=== PATIENT | female | born 1965 | race Two or more races ===

== ENCOUNTER 2025-02-21 21:22 | Inpatient (IN) | payer OTHER ==
[~2025-02-21] VITALS: Ht 167.6 cm; Wt 104.8 kg
[2025-02-21] MEDS ORDERED: LOSARTAN POTASS50 MG PO (21:33)
[2025-02-21] MEDS ORDERED: DIPHENHYDRAMINE HCL 50 MG/ML VIAL 1ML IV ONE (22:15)
[2025-02-21] MEDS ORDERED: 0.9 % SODIUM CHLORIDE 1,000 ML IV ONE (22:15)
[2025-02-21] MEDS ORDERED: FAMOtidine 10 MG/ML (4ML VIAL) IV ONE (22:15)
[2025-02-21] MEDS ORDERED: KETOROLAC TROMETHAMINE 30 MG VIAL IV ONE (22:15)
[2025-02-21] MEDS ORDERED: METHYLPREDNISOLONE SOD SUCC 40 MG VIAL IV ONE (22:15)
[2025-02-21] MEDS ORDERED: ONDANSETRON HCL 2 MG/ML VIAL IV ONE (22:15)
[2025-02-21] MEDS ORDERED: KETOROLAC TROMETHAMINE 30 MG VIAL ONE (22:20)
[2025-02-21] MEDS ORDERED: ONDANSETRON HCL 2 MG/ML VIAL ONE (22:20)
[2025-02-21] MEDS ORDERED: DIPHENHYDRAMINE HCL 50 MG/ML VIAL 1ML ONE (22:20)
[2025-02-21] MEDS ORDERED: FAMOTIDINE/PF 20 MG/2 ML VIAL ONE (22:21)
[2025-02-21] MEDS ORDERED: METHYLPREDNISOLONE SOD SUCC 125 MG VIAL ONE (22:21)
[2025-02-21] MEDS ORDERED: BARIUM SULFATE 450 ML ORAL.SUSP PO ONE (22:32)
[2025-02-21 23:21] LABS: HEMATOCRIT 25.4 % (36.0-45.00); PLATELET COUNT 222 K/uL (150-450); RED BLOOD COUNT 4.17 M/uL (4.00-6.00); RED CELL DISTRIBUTION WIDTH 18.5 % (11.5-14.5)
[2025-02-21 23:25] LABS: HEMOGLOBIN 7.6 g/dL (12.0-15.00); MEAN CELL VOLUME 60.9 fL (80.00-100.00); MEAN CORPUSCULAR HEMOGLOBIN 18.2 pg (27.00-32.0)
[2025-02-21 23:36] LABS: INR 1.05; PARTIAL THROMBOPLASTIN TIME 24.8 SECONDS (22.0-34.0); PROTHROMBIN TIME 11.4 SECONDS (9.0-11.5)
[2025-02-21 23:40] LABS: ALBUMIN 3.1 gm/dL (3.4-5.0); BILIRUBIN TOTAL 0.64 mg/dL (0.3-1.2); CALCIUM 8.9 mg/dL (8.5-10.1); CREATININE SERUM 0.59 mg/dL (0.55-1.02); GFR 103.28; POTASSIUM 3.92 mEq/L (3.5-5.1); TOTAL PROTEIN 8.1 gm/dL (6.4-8.2)
[2025-02-21] MEDS ORDERED: PIPERACILLIN/TAZOBACTAM SODIUM 3.375 GM VIAL IV ONE ×2 (23:45→23:59)
[2025-02-22 01:33] LABS: URINE APPEARANCE Clear; URINE BILIRRUBIN Negative (NEGATIVE); URINE BLOOD Negative; URINE COLOR Yellow; URINE GLUCOSE Negative (NEGATIVE); URINE KETONE Negative (NEGATIVE); URINE LEUKOCYTE Negative; URINE NITRATE Negative; URINE PROTEIN Negative (NEGATIVE); URINE UROBILINOGEN 0.2 E.U./dl
[2025-02-22 01:37] LABS: URINE EPITHELIAL CELLS 3.6 uL (0.0-38.8)
[2025-02-22 01:42] LABS: URINE CAST 0.29 uL (0.0-1.40); URINE RBC 1.7 uL (0.0-20.8); URINE WBC 0.4 uL (0.0-23.2)
[2025-02-22] MEDS ORDERED: SODIUM CHLORIDE 0.45 % 1,000 ML IV SCH (10:30)
[2025-02-22] MEDS ORDERED: LACTULOSE 20 G/30 ML BLIST.PACK PO SCH (10:55)
[2025-02-22] MEDS ORDERED: IRBESARTAN 150 MG TABLET PO SCH (11:03)
[2025-02-22] MEDS ORDERED: ONDANSETRON HCL 4 MG in DEXTROSE 5 % IN WATER 50 ML IV PRN (11:15)
[2025-02-22] MEDS ORDERED: INSULIN LISPRO 1,000 UNIT/10 ML UNITS SUBCUTANEO PRN (11:15)
[2025-02-22] MEDS ORDERED: CEFTRIAXONE SODIUM 1,000 MG VIAL IV SCH (11:15)
[2025-02-22] MEDS ORDERED: HYOSCYAMINE SULFATE 0.125 MG TAB.SUBL SL PRN (11:15)
[2025-02-22] MEDS ORDERED: MORPHINE SULFATE 4 MG/ML VIAL IV PRN (11:15)
[2025-02-22] MEDS ORDERED: METRONIDAZOLE/SODIUM CHLORIDE 100 ML IV SCH (11:15)
[2025-02-22] MEDS ORDERED: DEXTROSE 50 % IN WATER 0.5 G/ML DISP.SYRIN IV PRN (11:15)
[2025-02-22] MEDS ORDERED: SOD FERRIC GLUC COMPLX/SUCROSE 125 MG in 0.9 % SODIUM CHLORIDE 100 ML IV SCH (12:00)
[2025-02-22] MEDS ORDERED: HYOSCYAMINE SULFATE 0.125 MG TAB.SUBL ONE (12:52)
[2025-02-22] MEDS ORDERED: CEFTRIAXONE SODIUM 1,000 MG VIAL ONE (12:53)
[2025-02-22] MEDS ORDERED: METRONIDAZOLE/SODIUM CHLORIDE 500 MG/100 ML PIGGYBACK IV ONE (12:53)
[2025-02-22] MEDS ORDERED: ONDANSETRON HCL 2 MG/ML VIAL ONE (12:54)
[2025-02-22] MEDS ORDERED: ACETAMINOPHEN 500 MG GEL..CAP PO SCH (14:00)
[2025-02-22 15:05] VITALS: BP 146/66; O2SAT 95
[2025-02-22] MEDS ORDERED: DEXTROSE 50 % IN WATER 0.5 G/ML VIAL IV PRN (16:30)
[2025-02-22 17:19] LABS: HEMATOCRIT 29.4 % (36.0-45.00); MEAN CORPUSCULAR HEMOGLOBIN 20.1 pg (27.00-32.0); MEAN CORPUSCULAR HGB CONC 30.7 g/dl (32.0-36.0); RED BLOOD COUNT 4.48 M/uL (4.00-6.00)
[2025-02-22 17:20] LABS: MEAN CELL VOLUME 65.6 fL (80.00-100.00); PLATELET COUNT 195 K/uL (150-450); RED CELL DISTRIBUTION WIDTH 22.3 % (11.5-14.5)
[2025-02-22 17:44] LABS: FERRITIN 89.1 NG/ML (8-252)
[2025-02-22 17:54] VITALS: BP 145/84; O2SAT 95
[2025-02-22] MEDS ORDERED: MAGNESIUM HYDROXIDE 400 MG/5 ML ML PO SCH (21:00)
[2025-02-22] MEDS ORDERED: FAMOtidine 40 MG TABLET PO SCH (21:00)
[2025-02-22] MEDS ORDERED: ALPRAzolam 0.5 MG TABLET PO SCH (21:00)
[2025-02-22] MEDS ORDERED: MINERAL OIL 30 ML BLIST.PACK PO SCH (21:00)
[2025-02-22 22:19] VITALS: BP 120/68
[2025-02-23 00:46] VITALS: BP 109/66
[2025-02-23 07:57] LABS: INR 1.06; PARTIAL THROMBOPLASTIN TIME 22.9 SECONDS (22.0-34.0); PROTHROMBIN TIME 11.5 SECONDS (9.0-11.5)
[2025-02-23 08:14] LABS: ALBUMIN 2.7 gm/dL (3.4-5.0); BILIRUBIN TOTAL 0.53 mg/dL (0.3-1.2); BILIRUBIN,CONJUGATED 0.21 mg/dL (0.0-0.2); BILIRUBIN,UNCONJUGATED 0.32 mg/dL (0.0-0.6); CALCIUM 8.6 mg/dL (8.5-10.1); CHOL HDL RATIO 4.7 (0-5.0); CREATININE SERUM 0.49 mg/dL (0.55-1.02); GFR 127.97; PHOSPHOROUS 3.9 mg/dL (2.5-4.9); POTASSIUM 4.22 mEq/L (3.5-5.1); T4 FREE 1.35 NG/ML (0.76-1.46); TOTAL PROTEIN 6.9 gm/dL (6.4-8.2); TSH 1.02 uIU/mL (0.358-3.74)
[2025-02-23 08:15] LABS: C-REACTIVE PROTEIN 12.1 MG/DL (0.00-0.29)
[2025-02-23 08:38] VITALS: BP 139/57
[2025-02-23 09:34] LABS: HEMATOCRIT 28.9 % (36.0-45.00); MEAN CORPUSCULAR HGB CONC 30.7 g/dl (32.0-36.0); RED BLOOD COUNT 4.39 M/uL (4.00-6.00); RED CELL DISTRIBUTION WIDTH 22.2 % (11.5-14.5)
[2025-02-23 10:24] LABS: HEMOGLOBIN 8.9 g/dL (12.0-15.00); MEAN CORPUSCULAR HEMOGLOBIN 20.2 pg (27.00-32.0)
[2025-02-23 10:25] LABS: PLATELET COUNT 202 K/uL (150-450)
[2025-02-23 19:14] VITALS: BP 129/78; O2SAT 99
[2025-02-24 01:10] VITALS: BP 145/69; O2SAT 97
[2025-02-24 08:44] VITALS: BP 140/63
[2025-02-24 12:25] LABS: HEMATOCRIT 35.5 % (36.0-45.00); MEAN CORPUSCULAR HEMOGLOBIN 20.8 pg (27.00-32.0); RED BLOOD COUNT 5.29 M/uL (4.00-6.00); RED CELL DISTRIBUTION WIDTH 24.1 % (11.5-14.5)
[2025-02-24 12:36] LABS: MEAN CELL VOLUME 67.2 fL (80.00-100.00); PLATELET COUNT 204 K/uL (150-450)
[2025-02-24] MEDS ORDERED: PEG3350/SOD SULF,BICARB,CL/KCL 4,000 ML GALLON PO NR (15:00)
[2025-02-24 16:53] VITALS: BP 150/72
[2025-02-25 01:15] VITALS: BP 144/63; O2SAT 97
[2025-02-25] MEDS ORDERED: MIDAZOLAM HCL 2 MG/2 ML VIAL IV ONE (09:45)
[2025-02-25] MEDS ORDERED: DIPHENHYDRAMINE HCL 50 MG/ML VIAL 1ML IV ONE (09:45)
[2025-02-25] MEDS ORDERED: fentaNYL CITRATE 50 MCG/ML AMPUL IV ONE (09:45)
[2025-02-25 12:10] LABS: FOLIC ACID 10.17 ng/ml (4.78-20)
[2025-02-25 17:10] VITALS: BP 146/80
[2025-02-27 02:39] VITALS: BP 137/75; O2SAT 95
[2025-02-27 08:31] LABS: HEMATOCRIT 31.9 % (36.0-45.00); HEMOGLOBIN 10.2 g/dL (12.0-15.00); MEAN CORPUSCULAR HEMOGLOBIN 21.3 pg (27.00-32.0); PLATELET COUNT 170 K/uL (150-450); RED BLOOD COUNT 4.79 M/uL (4.00-6.00)
[2025-02-27 08:32] LABS: MEAN CELL VOLUME 66.6 fL (80.00-100.00)
[2025-02-27 09:18] VITALS: BP 150/80
[2025-02-27 09:23] LABS: ALBUMIN 2.5 gm/dL (3.4-5.0); BILIRUBIN TOTAL 0.45 mg/dL (0.3-1.2); CALCIUM 8.3 mg/dL (8.5-10.1); CREATININE SERUM 0.45 mg/dL (0.55-1.02); GFR 141.18; GLOBULINA 3.9 G/DL (2.4-3.5); MAGNESIUM 1.8 mg/dL (1.8-2.4); PHOSPHOROUS 3.6 mg/dL (2.5-4.9); POTASSIUM 3.76 mEq/L (3.5-5.1); TOTAL PROTEIN 6.4 gm/dL (6.4-8.2)
[2025-02-27 18:29] VITALS: BP 160/71; O2SAT 97
[2025-02-28 02:56] VITALS: BP 156/80; O2SAT 95
[2025-02-28 10:02] VITALS: BP 147/56; O2SAT 98
[2025-02-28 18:57] VITALS: BP 160/70; O2SAT 96
[2025-03-01 01:07] VITALS: BP 156/71; O2SAT 96
[2025-03-01 10:12] VITALS: BP 156/75; O2SAT 97
[2025-03-01] MEDS ORDERED: BUPIVACAINE HCL/MPF 0.5% 30ML VIAL ONE (16:55)
[2025-03-01] MEDS ORDERED: LIDOCAINE HCL 1% 20 ML VIAL IJ ONE (17:02)
[2025-03-01] MEDS ORDERED: CHLORHEXIDINE GLUCONATE 120 ML BOTTLE TOP ONE (17:06)
[2025-03-01] MEDS ORDERED: HEPARIN SODIUM,PORCINE/PF 100 UNIT/ML SYRINGE IV ONE (17:25)
[2025-03-01 22:49] VITALS: BP 166/84
[2025-03-02 01:17] VITALS: BP 159/75
[2025-03-02 09:59] VITALS: BP 158/68; O2SAT 98
[2025-03-02 18:25] VITALS: BP 160/85; O2SAT 98
[2025-03-03 01:58] VITALS: BP 129/73
[2025-03-03 09:30] VITALS: BP 147/74; O2SAT 98
== END 2025-03-03 15:35 | disposition home or self-care (01) | DRG 357 ==
LOC: ER 21:24 → MEDJ 02-22 11:50
PROVIDERS: General Practice; Surgery; ADMIT Internal Medicine; ATTEND Internal Medicine
PROC: BW21YZZ Computerized Tomography (CT Scan) of Abdomen and Pelvis using Other Contrast (ICD-10-PCS; 2025-02-21)
PROC: 30233N1 Transfusion of Nonautologous Red Blood Cells into Peripheral Vein, Percutaneous Approach (ICD-10-PCS; 2025-02-22)
PROC: BB24ZZZ Computerized Tomography (CT Scan) of Bilateral Lungs (ICD-10-PCS; 2025-02-22)
PROC: B246ZZZ Ultrasonography of Right and Left Heart (ICD-10-PCS; 2025-02-22)
PROC: 0DBK8ZX Excision of Ascending Colon, Via Natural or Artificial Opening Endoscopic, Diagnostic (ICD-10-PCS; 2025-02-25)
PROC: 05H633Z Insertion of Infusion Device into Left Subclavian Vein, Percutaneous Approach (ICD-10-PCS; 2025-03-01)
PROC: 0JH60WZ Insertion of Totally Implantable Vascular Access Device into Chest Subcutaneous Tissue and Fascia, Open Approach (ICD-10-PCS; principal; 2025-03-01 16:30)
DX: C18.2 Malignant neoplasm of ascending colon (principal); C78.7 Secondary malignant neoplasm of liver and intrahepatic bile duct; K57.30 Diverticulosis of large intestine without perforation or abscess without bleeding; D63.0 Anemia in neoplastic disease; D50.9 Iron deficiency anemia, unspecified; D64.89 Other specified anemias; K80.20 Calculus of gallbladder without cholecystitis without obstruction; E11.9 Type 2 diabetes mellitus without complications; I10 Essential (primary) hypertension

== ENCOUNTER 2025-05-01 19:48 | Inpatient (IN) | payer OTHER ==
[~2025-05-01] VITALS: Ht 167.6 cm; Wt 97.1 kg
[~2025-05-01 19:48] MED LIST: LOSARTAN POTASS50 MG PO
--- NOTE | 2025-05-01 20:07 | NUR ---
PTE ALERTA Y ORIENTADA X3 PTE DE CANCER DE COLOR Y HIGADO VERBALIZA TENER DIARREAS Y VOMITOS SE LE AISHA S/V Y SE UBICA.
[2025-05-01] MEDS ORDERED: FAMOtidine 10 MG/ML (4ML VIAL) IV ONE (20:30)
[2025-05-01] MEDS ORDERED: 0.9 % SODIUM CHLORIDE 1,000 ML IV ONE (20:30)
[2025-05-01] MEDS ORDERED: FAMOTIDINE/PF 20 MG/2 ML VIAL ONE (20:48)
--- NOTE | 2025-05-01 21:37 | NUR ---
SE EDUCA A PACIENTE SOBRE TRATAMIENTO MEDICO EL CUAL REFIERE ENTENDER, SE REALIZA GUIDO DE MUESTRAS REENA ORDEN MEDICA Y SE ADMINISTRA MEDICAS REENA ORDEN MEDICA.
[2025-05-01 21:46] LABS: BASO % 0.3 % (0.1-1.2); EOS # 0.01 (0.04-0.54); EOS % 0.3 % (0.7-7.0); LYMPH # 0.43 (1.18-3.74); LYMPH % 11.3 % (19.3-53.1); MEAN PLATELET VOLUME 9.90 fl (9.4-12.4); MONO # 0.24 (0.24-0.82); MONO % 6.3 % (4.7-12.5); NEUT # 3.08 (1.56-6.13); NEUT % 81.0 % (34.0-71.1); RED CELL DISTRIBUTION WIDTH 24.0 % (11.6-14.4)
[2025-05-01 22:05] LABS: ALT/SGPT 56.0 U/L (12-78); AST/SGOT 46.0 U/L (15-37); BILIRUBIN TOTAL 0.57 mg/dL (0.3-1.2); BUN CREA RATIO 20.0 (7.0-25.0); CREATININE SERUM 0.56 mg/dL (0.55-1.02); GFR 109.69; GLOBULINA 4.1 G/DL (2.4-3.5); GLUCOSE FASTING 152.0 mg/dL (65-100); OSMOLALITY SERUM 278.0 MOSM/KG (275-295)
[2025-05-01 22:22] LABS: URINE APPEARANCE Turbid; URINE BILIRRUBIN Negative (NEGATIVE); URINE BLOOD Negative; URINE COLOR Yellow; URINE GLUCOSE Negative (NEGATIVE); URINE KETONE Negative (NEGATIVE); URINE LEUKOCYTE Large; URINE NITRATE Negative; URINE PROTEIN 30 (NEGATIVE); URINE UROBILINOGEN 1.0 E.U./dl
[2025-05-01 22:25] LABS: URINE CAST 6.48 uL (0.0-1.40); URINE EPITHELIAL CELLS 45.5 uL (0.0-38.8); URINE RBC 237.1 uL (0.0-20.8); URINE WBC 84.8 uL (0.0-23.2)
[2025-05-01 22:30] LABS: COVID-19 AG NEGATIVE (NEGATIVE)
[2025-05-01] MEDS ORDERED: BARIUM SULFATE 450 ML ORAL.SUSP PO ONE ×2 (22:35→23:08)
[2025-05-01 22:36] LABS: URINE BACTERIA > 9821.5 uL (0.0-1933)
[2025-05-01] MEDS ORDERED: ACETAMINOPHEN 500 MG GEL..CAP PO PRN (23:30)
[2025-05-01] MEDS ORDERED: PANTOPRAZOLE SODIUM 40 MG/VIAL VIAL IV SCH (23:30)
[2025-05-01] MEDS ORDERED: ONDANSETRON HCL 4 MG in 0.9 % SODIUM CHLORIDE 50 ML IV PRN (23:30)
[2025-05-01] MEDS ORDERED: 0.9 % SODIUM CHLORIDE 1,000 ML IV SCH (23:30)
[2025-05-01] MEDS ORDERED: DEXTROSE 50 % IN WATER 0.5 G/ML DISP.SYRIN IV PRN (23:45)
[2025-05-01] MEDS ORDERED: INSULIN LISPRO 1,000 UNIT/10 ML UNITS SUBCUTANEO PRN (23:45)
[2025-05-02] MEDS ORDERED: ENALAPRILAT DIHYDRATE 1.25 MG/ML VIAL IV SCH
[2025-05-02] MEDS ORDERED: PIPERACILLIN/TAZOBACTAM SODIUM 3.375 GM in DEXTROSE 5 % IN WATER 100 ML IV SCH
[2025-05-02] MEDS ORDERED: PIPERACILLIN/TAZOBACTAM SODIUM 3.375 GM VIAL IV ONE (02:53)
[2025-05-02 04:30] VITALS: BP 136/78; O2SAT 99
[2025-05-02 08:00] VITALS: BP 133/75; O2SAT 99
[2025-05-02] MEDS ORDERED: ENOXAPARIN SODIUM 40 MG/0.4 ML SYRINGE SUBCUTANEO SCH (09:00)
[2025-05-02 13:14] LABS: INR 1.07
[2025-05-02 16:08] VITALS: BP 137/69; O2SAT 97
[2025-05-03 00:55] VITALS: BP 129/69; O2SAT 99
[2025-05-03 08:00] VITALS: BP 126/79; O2SAT 98
[2025-05-03 16:00] VITALS: BP 163/75; O2SAT 978
[2025-05-03] MEDS ORDERED: PIPERACILLIN/TAZOBACTAM SODIUM 3.375 GM VIAL IV ONE (22:40)
[2025-05-04 00:31] VITALS: BP 137/78; O2SAT 98
[2025-05-04] MEDS ORDERED: LACTOBACILLUS ACIDOPHILUS 1 CAP CAP PO SCH (09:00)
[2025-05-04 09:28] VITALS: BP 115/75; O2SAT 99
[2025-05-04 16:05] VITALS: BP 152/93; O2SAT 100
[2025-05-05 00:46] VITALS: BP 134/77; O2SAT 100
[2025-05-05 08:09] VITALS: BP 136/78; O2SAT 99
[2025-05-05 08:11] LABS: BASO % 0.6 % (0.1-1.2); EOS # 0.07 (0.04-0.54); EOS % 1.9 % (0.7-7.0); LYMPH # 1.26 (1.18-3.74); LYMPH % 34.9 % (19.3-53.1); MEAN PLATELET VOLUME 10.00 fl (9.4-12.4); MONO # 0.45 (0.24-0.82); NEUT # 1.80 (1.56-6.13); NEUT % 49.8 % (34.0-71.1); RED CELL DISTRIBUTION WIDTH 23.1 % (11.6-14.4)
[2025-05-05 08:14] LABS: MONO % 12.5 % (4.7-12.5)
[2025-05-05 08:35] LABS: BUN CREA RATIO 13.0 (7.0-25.0); CREATININE SERUM 0.54 mg/dL (0.55-1.02); GFR 114.39; GLUCOSE FASTING 120.0 mg/dL (65-100); OSMOLALITY SERUM 292.0 MOSM/KG (275-295)
[2025-05-05] MEDS ORDERED: SODIUM CHLORIDE 0.45 % 1,000 ML IV SCH (13:30)
[2025-05-05] MEDS ORDERED: POTASSIUM CHLORIDE/D5-0.45NACL 1,000 ML IV NR (14:15)
[2025-05-05 16:48] VITALS: BP 139/81; O2SAT 97
[2025-05-06 00:38] VITALS: BP 129/78; O2SAT 100
[2025-05-06 07:37] LABS: BASO % 0.5 % (0.1-1.2); EOS # 0.09 (0.04-0.54); EOS % 2.1 % (0.7-7.0); LYMPH # 1.97 (1.18-3.74); LYMPH % 46.6 % (19.3-53.1); MEAN PLATELET VOLUME 9.70 fl (9.4-12.4); MONO # 0.36 (0.24-0.82); MONO % 8.5 % (4.7-12.5); NEUT # 1.78 (1.56-6.13); NEUT % 42.1 % (34.0-71.1); RED CELL DISTRIBUTION WIDTH 22.7 % (11.6-14.4)
[2025-05-06 08:05] LABS: BAND MAN 1.0 %; EOSINOPHIL MAN 2.0 %; LYMPHOCYTE MAN 43.0 %; MONOCYTE MAN 4.0 %; NEUTROPHILS MAN 49.0 %
[2025-05-06 08:15] VITALS: BP 147/71; O2SAT 99
[2025-05-06 08:15] LABS: ALT/SGPT 49.0 U/L (12-78); AST/SGOT 63.0 U/L (15-37); BILIRUBIN TOTAL 0.51 mg/dL (0.3-1.2); BUN CREA RATIO 8.0 (7.0-25.0); CREATININE SERUM 0.63 mg/dL (0.55-1.02); GFR 95.75; GLOBULINA 3.5 G/DL (2.4-3.5); GLUCOSE FASTING 110.0 mg/dL (65-100); OSMOLALITY SERUM 288.0 MOSM/KG (275-295)
[2025-05-06] MEDS ORDERED: POTASSIUM CHLORIDE IN WATER 100 ML IV NR (09:00)
[2025-05-06 16:00] VITALS: BP 172/77; O2SAT 97
[2025-05-06 20:00] VITALS: BP 164/80; O2SAT 98
[2025-05-07 01:26] VITALS: BP 134/83; O2SAT 100
[2025-05-07 07:23] LABS: BASO % 0.4 % (0.1-1.2); EOS # 0.06 (0.04-0.54); EOS % 1.3 % (0.7-7.0); LYMPH # 2.47 (1.18-3.74); LYMPH % 54.2 % (19.3-53.1); MEAN PLATELET VOLUME 9.70 fl (9.4-12.4); MONO # 0.33 (0.24-0.82); MONO % 7.2 % (4.7-12.5); NEUT # 1.67 (1.56-6.13); NEUT % 36.7 % (34.0-71.1); RED CELL DISTRIBUTION WIDTH 22.9 % (11.6-14.4)
[2025-05-07 07:56] LABS: BUN CREA RATIO 9.0 (7.0-25.0); CREATININE SERUM 0.46 mg/dL (0.55-1.02); GFR 137.64; GLUCOSE FASTING 112.0 mg/dL (65-100); OSMOLALITY SERUM 290.0 MOSM/KG (275-295)
[2025-05-07 08:00] VITALS: BP 140/83; O2SAT 99
[2025-05-07] MEDS ORDERED: POTASSIUM CHLORIDE 10 MEQ CAPSULE PO STA (10:02)
[2025-05-07] MEDS ORDERED: POTASSIUM CHLORIDE 10 MEQ CAPSULE PO SCH (13:00)
[2025-05-07 16:00] VITALS: BP 148/77; O2SAT 98
== END 2025-05-07 16:22 | disposition home or self-care (01) | DRG 690 ==
LOC: ER 19:52 → SURH 23:31
PROVIDERS: General Practice; Student in an Organized Health Care Education/Training Program; ADMIT Internal Medicine; ATTEND Internal Medicine
PROC: BW21ZZZ Computerized Tomography (CT Scan) of Abdomen and Pelvis (ICD-10-PCS; principal; 2025-05-01)
DX: N39.0 Urinary tract infection, site not specified (principal); C78.7 Secondary malignant neoplasm of liver and intrahepatic bile duct; C18.2 Malignant neoplasm of ascending colon; B96.89 Other specified bacterial agents as the cause of diseases classified elsewhere; I10 Essential (primary) hypertension; E11.9 Type 2 diabetes mellitus without complications; Z79.4 Long term (current) use of insulin; D69.6 Thrombocytopenia, unspecified; E87.6 Hypokalemia

== ENCOUNTER 2025-05-13 08:46 | Inpatient (IN) | payer OTHER ==
[~2025-05-13] VITALS: Ht 167.6 cm; Wt 97.5 kg
--- NOTE | 2025-05-13 09:58 | NUR ---
PTE ALERTA Y ORIENTADA X3 REFIERE QUE PRESENTA DOLOR ABDOMINAL DESDE EL GYPSY DE SONY CON DIARREAS PERSISTENTES, QUE ES PTE DE CANCER. SE MIDEN S/V Y SE UBICA EN CAMA 8.
[2025-05-13] MEDS ORDERED: DIPHENHYDRAMINE HCL 50 MG/ML VIAL 1ML IV ONE (10:15)
[2025-05-13] MEDS ORDERED: FAMOtidine 10 MG/ML (4ML VIAL) IV ONE (10:15)
[2025-05-13] MEDS ORDERED: 0.9 % SODIUM CHLORIDE 1,000 ML IV ONE (10:15)
[2025-05-13] MEDS ORDERED: KETOROLAC TROMETHAMINE 30 MG VIAL IV ONE (10:15)
[2025-05-13] MEDS ORDERED: METHYLPREDNISOLONE SOD SUCC 125 MG VIAL IV ONE (10:15)
[2025-05-13] MEDS ORDERED: CIPROFLOXACIN IN 5 % DEXTROSE 400 MG/200 ML PIGGYBAG IV ONE (10:15)
--- NOTE | 2025-05-13 11:06 | NUR ---
SE EDUCA A PACIENTE SOBRE TRATAMIENTO MEDICO EL CUAL REFIERE ENTENDER, SE REALIZA CANALIZACION DE PACIENTE CON ANGIO #24 Y SE ADMINISTRA MEDICAMENTOS REENA ORDEN MEDICA Y BAJO MEDIDAS ASEPTICAS.
[2025-05-13] MEDS ORDERED: CHOLESTYRAMINE/ASPARTAME LIGHT 4 G/PKT PACKET PO NR (11:15)
[2025-05-13 12:02] LABS: BASO % 0.5 % (0.1-1.2); EOS # 0.01 (0.04-0.54); EOS % 0.1 % (0.7-7.0); LYMPH # 1.73 (1.18-3.74); LYMPH % 14.8 % (19.3-53.1); MONO # 1.51 (0.24-0.82); NEUT # 8.35 (1.56-6.13); NEUT % 71.4 % (34.0-71.1); RED CELL DISTRIBUTION WIDTH 22.5 % (11.6-14.4)
[2025-05-13 12:04] LABS: MONO % 12.9 % (4.7-12.5)
[2025-05-13 12:35] LABS: ALT/SGPT 53.0 U/L (12-78); AST/SGOT 58.0 U/L (15-37); BILIRUBIN TOTAL 1.35 mg/dL (0.3-1.2); BILIRUBIN,CONJUGATED 0.43 mg/dL (0.0-0.2); BUN CREA RATIO 18.0 (7.0-25.0); CREATININE SERUM 0.68 mg/dL (0.55-1.02); GFR 87.67; GLOBULINA 4.8 G/DL (2.4-3.5); GLUCOSE FASTING 144.0 mg/dL (65-100); OSMOLALITY SERUM 280.0 MOSM/KG (275-295)
[2025-05-13 12:59] LABS: INR 1.1
[2025-05-13] MEDS ORDERED: 0.9 % SODIUM CHLORIDE 1,000 ML IV SCH (19:30)
[2025-05-13] MEDS ORDERED: PANTOPRAZOLE SODIUM 40 MG/VIAL VIAL IV SCH (19:34)
[2025-05-13] MEDS ORDERED: ACETAMINOPHEN 500 MG GEL..CAP PO PRN (19:45)
[2025-05-13] MEDS ORDERED: ONDANSETRON HCL 4 MG in 0.9 % SODIUM CHLORIDE 50 ML IV PRN (19:45)
[2025-05-13] MEDS ORDERED: ENALAPRILAT DIHYDRATE 1.25 MG/ML VIAL IV PRN (19:45)
[2025-05-13] MEDS ORDERED: CIPROFLOXACIN IN 5 % DEXTROSE 200 ML IV SCH (21:00)
[2025-05-13 23:00] VITALS: BP 134/76; O2SAT 98
[2025-05-14 03:47] VITALS: BP 134/76
[2025-05-14 07:47] VITALS: BP 136/84; O2SAT 98
[2025-05-14 10:11] LABS: URINE APPEARANCE Clear; URINE BILIRRUBIN Negative (NEGATIVE); URINE BLOOD Negative; URINE COLOR Yellow; URINE GLUCOSE Negative (NEGATIVE); URINE KETONE Negative (NEGATIVE); URINE LEUKOCYTE Trace; URINE NITRATE Negative; URINE PROTEIN Negative (NEGATIVE); URINE UROBILINOGEN 1.0 E.U./dl
[2025-05-14 10:15] LABS: URINE BACTERIA 203.9 uL (0.0-1933); URINE EPITHELIAL CELLS 32.9 uL (0.0-38.8); URINE WBC 17.0 uL (0.0-23.2)
[2025-05-14 10:27] LABS: URINE CAST 0.58 uL (0.0-1.40); URINE RBC 1.4 uL (0.0-20.8)
[2025-05-14 15:27] VITALS: BP 146/80; O2SAT 96
[2025-05-14 20:02] LABS: URINE APPEARANCE Cloudy; URINE BILIRRUBIN Negative (NEGATIVE); URINE BLOOD Negative; URINE COLOR Yellow; URINE GLUCOSE Negative (NEGATIVE); URINE KETONE Trace (NEGATIVE); URINE LEUKOCYTE Moderate; URINE NITRATE Negative; URINE PROTEIN Negative (NEGATIVE); URINE UROBILINOGEN 1.0 E.U./dl
[2025-05-14 20:05] LABS: URINE BACTERIA 589.1 uL (0.0-1933); URINE EPITHELIAL CELLS 114.6 uL (0.0-38.8); URINE RBC 3.6 uL (0.0-20.8); URINE WBC 144.7 uL (0.0-23.2)
[2025-05-14 20:06] LABS: URINE CAST 0.73 uL (0.0-1.40)
[2025-05-14 20:24] LABS: TYPE CELLS SQUAMOUS
[2025-05-14 20:25] LABS: URINE MUCUS SCANT; URINE YEAST FEW /hpf
[2025-05-15 02:20] VITALS: BP 146/62; O2SAT 97
[2025-05-15 08:00] VITALS: BP 125/64; O2SAT 98
[2025-05-15 17:34] VITALS: BP 145/84; O2SAT 99
[2025-05-16 01:55] VITALS: BP 111/56; O2SAT 100
[2025-05-16 07:32] LABS: BASO % 1.1 % (0.1-1.2); EOS # 0.11 (0.04-0.54); EOS % 3.0 % (0.7-7.0); LYMPH # 1.01 (1.18-3.74); LYMPH % 27.4 % (19.3-53.1); MONO # 0.42 (0.24-0.82); MONO % 11.4 % (4.7-12.5); NEUT # 2.09 (1.56-6.13); NEUT % 56.6 % (34.0-71.1); RED CELL DISTRIBUTION WIDTH 20.2 % (11.6-14.4)
[2025-05-16 08:00] VITALS: BP 129/76; O2SAT 98
[2025-05-16 08:08] LABS: ALT/SGPT 26.0 U/L (12-78); AST/SGOT 30.0 U/L (15-37); BILIRUBIN TOTAL 0.75 mg/dL (0.3-1.2); BUN CREA RATIO 13.0 (7.0-25.0); CREATININE SERUM 0.53 mg/dL (0.55-1.02); GFR 116.89; GLOBULINA 3.5 G/DL (2.4-3.5); GLUCOSE FASTING 118.0 mg/dL (65-100); OSMOLALITY SERUM 286.0 MOSM/KG (275-295)
[2025-05-16 18:20] VITALS: BP 137/80; O2SAT 98
[2025-05-17 02:19] VITALS: BP 153/80; O2SAT 97
[2025-05-17 07:00] VITALS: BP 168/76; O2SAT 99
[2025-05-17 07:05] LABS: URINE APPEARANCE Clear; URINE BILIRRUBIN Negative (NEGATIVE); URINE BLOOD Negative; URINE COLOR Yellow; URINE GLUCOSE Negative (NEGATIVE); URINE KETONE Negative (NEGATIVE); URINE LEUKOCYTE Small; URINE NITRATE Negative; URINE PROTEIN Negative (NEGATIVE); URINE UROBILINOGEN 0.2 E.U./dl
[2025-05-17 07:09] LABS: URINE BACTERIA 259.1 uL (0.0-1933); URINE EPITHELIAL CELLS 53.3 uL (0.0-38.8); URINE WBC 46.1 uL (0.0-23.2)
[2025-05-17 07:23] LABS: URINE CAST 0.00 uL (0.0-1.40); URINE RBC 1.9 uL (0.0-20.8)
== END 2025-05-17 15:03 | disposition home or self-care (01) | DRG 392 ==
LOC: ER 08:49 → MEDJ 20:07 → SURG 20:07 → SEC-K 05-14 03:43 → SURG 05-14 03:51 → SURH 05-14 16:03
PROVIDERS: General Practice; Internal Medicine Infectious Disease; ADMIT Internal Medicine; ATTEND Internal Medicine
PROC: BW21ZZZ Computerized Tomography (CT Scan) of Abdomen and Pelvis (ICD-10-PCS; principal; 2025-05-13)
PROC: 8E0ZXY6 Isolation (ICD-10-PCS; 2025-05-13)
DX: K52.89 Other specified noninfective gastroenteritis and colitis (principal); C78.7 Secondary malignant neoplasm of liver and intrahepatic bile duct; C18.2 Malignant neoplasm of ascending colon; T45.1X5A Adverse effect of antineoplastic and immunosuppressive drugs, initial encounter; D69.6 Thrombocytopenia, unspecified; I10 Essential (primary) hypertension; E11.9 Type 2 diabetes mellitus without complications; Z79.4 Long term (current) use of insulin; E78.5 Hyperlipidemia, unspecified

== ENCOUNTER 2025-07-17 09:39 | Inpatient (IN) | payer OTHER ==
[~2025-07-17] VITALS: Ht 170.2 cm; Wt 94.3 kg
[2025-07-17] MEDS ORDERED: DIATRIZOATE MEGLUMINE, SODIUM 30 ML BOTTLE PO ONE (10:30)
[2025-07-17] MEDS ORDERED: 0.9 % SODIUM CHLORIDE 1,000 ML IV ONE (10:30)
[2025-07-17] MEDS ORDERED: FAMOtidine 10 MG/ML (4ML VIAL) IV ONE (10:30)
[2025-07-17] MEDS ORDERED: MORPHINE SULFATE 4 MG/ML VIAL IV ONE (10:30)
[2025-07-17] MEDS ORDERED: ONDANSETRON HCL 2 MG/ML VIAL IV ONE (10:30)
[2025-07-17] MEDS ORDERED: ONDANSETRON HCL 2 MG/ML VIAL ONE (10:40)
[2025-07-17] MEDS ORDERED: FAMOTIDINE/PF 20 MG/2 ML VIAL ONE (10:41)
[2025-07-17] MEDS ORDERED: DIATRIZOATE MEGLUMINE, SODIUM 30 ML BOTTLE ONE (10:41)
[2025-07-17 11:32] LABS: BASO % 0.4 % (0.1-1.2); EOS # 0.04 (0.04-0.54); EOS % 1.6 % (0.7-7.0); LYMPH # 1.01 (1.18-3.74); LYMPH % 40.7 % (19.3-53.1); MEAN PLATELET VOLUME 10.60 fl (9.4-12.4); MONO # 0.28 (0.24-0.82); MONO % 11.3 % (4.7-12.5); NEUT # 1.13 (1.56-6.13); NEUT % 45.6 % (34.0-71.1); RED CELL DISTRIBUTION WIDTH 15.0 % (11.6-14.4)
[2025-07-17 11:49] LABS: ERYTHROCYTE SEDIMENTATION RATE 77 mm/hr (0-30)
[2025-07-17 11:56] LABS: INR 1.02
[2025-07-17 11:57] LABS: ALT/SGPT 58.0 U/L (12-78); AST/SGOT 56.0 U/L (15-37); BILIRUBIN TOTAL 1.1 mg/dL (0.3-1.2); BUN CREA RATIO 21.0 (7.0-25.0); CREATININE SERUM 0.56 mg/dL (0.55-1.02); GFR 109.69; GLOBULINA 4.6 G/DL (2.4-3.5); GLUCOSE FASTING 232.0 mg/dL (65-100); OSMOLALITY SERUM 285.0 MOSM/KG (275-295)
[2025-07-17 13:02] LABS: URINE APPEARANCE Clear; URINE BILIRRUBIN Negative (NEGATIVE); URINE BLOOD Negative; URINE COLOR Yellow; URINE KETONE Negative (NEGATIVE); URINE LEUKOCYTE Negative; URINE NITRATE Negative; URINE PROTEIN Trace (NEGATIVE); URINE UROBILINOGEN 1.0 E.U./dl
[2025-07-17 13:05] LABS: URINE BACTERIA 105.5 uL (0.0-1933); URINE EPITHELIAL CELLS 7.8 uL (0.0-38.8); URINE RBC 2.0 uL (0.0-20.8)
[2025-07-17 13:18] LABS: URINE CAST 0.14 uL (0.0-1.40); URINE GLUCOSE >=1000 MG/DL (NEGATIVE); URINE WBC 1.5 uL (0.0-23.2)
[2025-07-17] MEDS ORDERED: PIPERACILLIN/TAZOBACTAM SODIUM 3.375 GM VIAL IV ONE ×2 (16:00→16:03)
[2025-07-17] MEDS ORDERED: CEFTRIAXONE SODIUM 2,000 MG in 0.9 % SODIUM CHLORIDE 100 ML IV SCH (18:13)
[2025-07-17] MEDS ORDERED: PANTOPRAZOLE SODIUM 40 MG/VIAL VIAL IV SCH (18:13)
[2025-07-17] MEDS ORDERED: ONDANSETRON HCL 4 MG in 0.9 % SODIUM CHLORIDE 50 ML IV PRN (18:15)
[2025-07-17] MEDS ORDERED: ACETAMINOPHEN 500 MG GEL..CAP PO PRN (18:15)
[2025-07-17] MEDS ORDERED: 0.9 % SODIUM CHLORIDE 1,000 ML IV SCH (18:15)
[2025-07-17 22:07] VITALS: O2SAT 97
[2025-07-18 02:03] VITALS: BP 130/75; O2SAT 98
[2025-07-18 02:31] VITALS: O2SAT 90
[2025-07-18 05:46] VITALS: O2SAT 97
[2025-07-18 08:34] VITALS: BP 119/61; O2SAT 96
[2025-07-18] MEDS ORDERED: LOSARTAN POTASSIUM 50 MG TABLET PO SCH (09:00)
[2025-07-18 10:17] VITALS: O2SAT 100
[2025-07-18 13:42] LABS: BASO % 0.4 % (0.1-1.2); EOS # 0.06 (0.04-0.54); EOS % 2.1 % (0.7-7.0); LYMPH # 1.54 (1.18-3.74); LYMPH % 54.8 % (19.3-53.1); MEAN PLATELET VOLUME 11.50 fl (9.4-12.4); MONO # 0.21 (0.24-0.82); MONO % 7.5 % (4.7-12.5); NEUT # 0.98 (1.56-6.13); NEUT % 34.8 % (34.0-71.1); RED CELL DISTRIBUTION WIDTH 15.3 % (11.6-14.4)
[2025-07-18] MEDS ORDERED: VITAMIN B COMPLEX/LYSINE 15 ML BLIST.PACK PO SCH (17:00)
[2025-07-18 17:32] VITALS: BP 123/74; O2SAT 100
[2025-07-18 20:27] LABS: ob POSITIVE (NEGATIVE)
[2025-07-19 04:30] VITALS: BP 126/67; O2SAT 100
[2025-07-19 09:58] VITALS: BP 124/73; O2SAT 98
[2025-07-19 18:18] VITALS: BP 142/66
[2025-07-20 02:08] VITALS: BP 124/74; O2SAT 99
[2025-07-20 09:36] VITALS: BP 134/70
[2025-07-21] MEDS ORDERED: PANTOPRAZOLE SODIUM 40 MG TABLET.DR PO SCH (09:00)
== END 2025-07-20 14:32 | disposition home or self-care (01) | DRG 813 ==
LOC: ER 09:39 → MEDJ 19:12
PROVIDERS: General Practice; ADMIT Internal Medicine; ATTEND Internal Medicine
PROC: BW21ZZZ Computerized Tomography (CT Scan) of Abdomen and Pelvis (ICD-10-PCS; principal; 2025-07-17)
PROC: 4A12X4Z Monitoring of Cardiac Electrical Activity, External Approach (ICD-10-PCS; 2025-07-17)
PROC: 8E0ZXY6 Isolation (ICD-10-PCS; 2025-07-17)
PROC: BW28YZZ Computerized Tomography (CT Scan) of Head using Other Contrast (ICD-10-PCS; 2025-07-18)
PROC: 30233R1 Transfusion of Nonautologous Platelets into Peripheral Vein, Percutaneous Approach (ICD-10-PCS; 2025-07-18)
DX: D69.6 Thrombocytopenia, unspecified (principal); C18.2 Malignant neoplasm of ascending colon; C78.2 Secondary malignant neoplasm of pleura; R63.0 Anorexia; K59.09 Other constipation; I10 Essential (primary) hypertension; K80.20 Calculus of gallbladder without cholecystitis without obstruction; D72.818 Other decreased white blood cell count

== ENCOUNTER 2025-09-25 03:23 | Emergency (ER) | payer OTHER ==
[~2025-09-25] VITALS: Ht 162.6 cm; Wt 86.2 kg
[~2025-09-25 03:23] MED LIST changes: +DOLOGESIC 500-1 EACH PO; +MIRALAX17 GM PO
[2025-09-25] MEDS ORDERED: MORPHINE SULFATE 4 MG/ML CARTRIDGE IV STA ×2 (04:08→06:49)
[2025-09-25] MEDS ORDERED: PROMETHAZINE HCL 50 MG/ML AMPUL IM STA (04:08)
[2025-09-25] MEDS ORDERED: PROMETHAZINE HCL 50 MG/ML AMPUL IM ONE (04:13)
[2025-09-25] MEDS ORDERED: 0.9 % SODIUM CHLORIDE 1,000 ML IV ONE (04:15)
[2025-09-25 04:49] LABS: BASO % 0.4 % (0.1-1.2); EOS # 0.01 (0.04-0.54); EOS % 0.4 % (0.7-7.0); LYMPH # 0.95 (1.18-3.74); LYMPH % 42.6 % (19.3-53.1); MEAN PLATELET VOLUME 10.10 fl (9.4-12.4); MONO # 0.43 (0.24-0.82); NEUT # 0.82 (1.56-6.13); NEUT % 36.9 % (34.0-71.1); RED CELL DISTRIBUTION WIDTH 18.7 % (11.6-14.4)
[2025-09-25 05:32] LABS: INR 1.11
[2025-09-25 05:35] LABS: ALT/SGPT 49.0 U/L (12-78); AST/SGOT 85.0 U/L (15-37); BILIRUBIN TOTAL 5.46 mg/dL (0.3-1.2); BILIRUBIN,CONJUGATED 4.4 mg/dL (0.0-0.2); BUN CREA RATIO 16.0 (7.0-25.0); CREATININE SERUM 0.81 mg/dL (0.55-1.02); GFR 71.64; GLOBULINA 3.6 G/DL (2.4-3.5); GLUCOSE FASTING 135.0 mg/dL (65-100); OSMOLALITY SERUM 285.0 MOSM/KG (275-295)
[2025-09-25 05:55] LABS: MONO % 19.3 % (4.7-12.5)
[2025-09-25 05:56] LABS: LYMPHOCYTE MAN 38.0 %; MONOCYTE MAN 13.0 %; NEUTROPHILS MAN 31.0 %
[2025-09-25] MEDS ORDERED: FAMOTIDINE/PF 20 MG/2 ML VIAL IV PUSH STA (06:49)
[2025-09-25] MEDS ORDERED: POTASSIUM CHLORIDE IN 0.9%NACL 40 MEQ/1,000 ML PIGGYBAG IV ONE (07:00)
[2025-09-25] MEDS ORDERED: FAMOTIDINE/PF 20 MG/2 ML VIAL ONE (07:39)
[2025-09-25] MEDS ORDERED: NOREPINEPHRINE BITARTRATE 1 MG/ML AMPUL IV ONE (09:30)
[2025-09-25] MEDS ORDERED: NOREPINEPHRINE BITARTRATE 8 MG in DEXTROSE 5 % IN WATER 250 ML IV SCH (10:30)
[2025-09-25] MEDS ORDERED: SODIUM BICARBONATE 1 MEQ/ML DISP.SYRIN 50ML IV STA (10:35)
[2025-09-25 10:49] VITALS: BP 55/30; O2SAT 95
[2025-09-25 10:54] LABS: URINE APPEARANCE Cloudy; URINE BILIRRUBIN Large (NEGATIVE); URINE BLOOD Negative; URINE COLOR Dark Yellow; URINE KETONE Negative (NEGATIVE); URINE LEUKOCYTE Small; URINE NITRATE Positive; URINE UROBILINOGEN 1.0 E.U./dl
[2025-09-25 10:58] LABS: URINE BACTERIA 224.3 uL (0.0-1933); URINE CAST 17.30 uL (0.0-1.40); URINE EPITHELIAL CELLS 164.9 uL (0.0-38.8); URINE RBC 46.3 uL (0.0-20.8); URINE WBC 15.5 uL (0.0-23.2)
[2025-09-25] MEDS ORDERED: POTASSIUM CHLORIDE IN WATER 100 ML IV ONE (11:00)
[2025-09-25 11:35] LABS: URINE GLUCOSE 100 MG/DL (NEGATIVE); URINE PROTEIN 100 (NEGATIVE)
[2025-09-25 11:51] LABS: URINE CRYSTALS FEW /HPF
== END 2025-09-25 17:41 | disposition home or self-care (01) ==
LOC: ER 03:23
PROVIDERS: General Practice
DX: Z91.041 Radiographic dye allergy status (principal); Z85.038 Personal history of other malignant neoplasm of large intestine; Z85.05 Personal history of malignant neoplasm of liver; E11.9 Type 2 diabetes mellitus without complications; I10 Essential (primary) hypertension